=== PATIENT | female | born 1960 | race Caucasian/White ===

== ENCOUNTER 2018-04-23 14:15 | Inpatient (IN) | payer OTHER ==
[2018-04-23 14:15] VITALS: BMI 25.9
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
--- NOTE | 2018-04-23 17:53 | CARD ---
APPROVED REPORT EKG Measurement Heart [id number] <Conclusion> Normal sinus rhythm Normal ECG
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
--- NOTE | 2018-04-23 18:50 | RAD ---
PROCEDURE: CHEST RADIOGRAPH, 1 VIEW HISTORY: wheezing COMPARISON: None available. FINDINGS: LUNGS: Clear. PLEURA: No pneumothorax or pleural fluid seen. CARDIOVASCULAR: Normal. OSSEOUS STRUCTURES: Degenerative changes. Right subdeltoid bursa region loose body, severe calcific tendinitis among other considerations. VISUALIZED UPPER ABDOMEN: Normal. OTHER FINDINGS: Nonspecific calcification in the right axilla. IMPRESSION: No active pulmonary disease. Nonspecific calcification in the right axilla.
[2018-04-23] MEDS ORDERED: Morphine 2 mg/ml ISec IM STA (19:02)
[2018-04-23] MEDS ORDERED: Morphine 4 mg/ml ISec IVP PRN (23:12)
[2018-04-23] MEDS ORDERED: Sodium Chloride 0.9% 1,000 ML IV SCH (23:15)
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
[2018-04-24 01:34] LABS: BASO # 0.01 K/mm3 (0.0-2.0); BASO % 0.2 % (0.0-3.0); EOS % 0.5 % (1.5-5.0); GRAN # 4.1 (1.4-6.5); GRAN % 67.5 % (50.0-68.0); HEMOGLOBIN 12.3 g/dL (12.0-16.0); LYMPH # 1.6 (1.2-3.4); LYMPH % 25.7 % (22.0-35.0); MEAN CELL VOLUME 79.7 fl (80.0-105.0); MEAN CORPUSCULAR HEMOGLOBIN 26.3 pg (25.0-35.0); MEAN PLATELET VOLUME 11.5 fl (7.0-11.0); MONO # 0.4 (0.1-0.6); MONO % 6.1 % (1.0-6.0); RBC 4.68 10^6/uL (3.5-6.1); RED CELL DISTRIBUTION WIDTH 14.2 % (11.5-14.5); WHITE BLOOD COUNT 6.1 10^3/ul (4.5-11.0)
[2018-04-24 01:43] LABS: BLOOD UREA NITROGEN 8 mg/dL (7-21); CALCIUM 9.1 mg/dL (8.4-10.5); GFR AFRICAN-AMERICAN > 60; GFR NON-AFRICAN AMERICAN > 60
[2018-04-24 01:46] LABS: INR 1.15 (0.93-1.08); PARTIAL THROMBOPLASTIN TIME 31.3 Seconds (25.1-36.5); PROTHROMBIN TIME 13.1 SECONDS (9.4-12.5)
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
[2018-04-24] MEDS ORDERED: HYDROCHLOROTHIAZIDE PO SCH (10:00)
[2018-04-24] MEDS ORDERED: [UNRECOGNIZED DRUG - OTHER] PO SCH (10:00)
[2018-04-24] MEDS ORDERED: LOSARTAN POTASSIUM PO SCH (10:00)
[2018-04-24] MEDS ORDERED: GLYBURIDE PO SCH (10:00)
[2018-04-24] MEDS ORDERED: METFORMIN HCL PO SCH (10:00)
[2018-04-24] MEDS: Oxycodone/Acetaminophen 5/325 mg Tab PO PRN ×2 (10:16→18:21)
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
--- NOTE | 2018-04-24 14:46 | RAD ---
PROCEDURE: Bilateral Knee Radiographs. HISTORY: knee pain COMPARISON: None. FINDINGS: BONES: Right Knee: Normal. No fracture. Left Knee: Normal. No fracture. JOINTS: Right Knee: Normal. No osteoarthritis. Left knee: Normal. No osteoarthritis. SOFT TISSUES: Right Knee: Normal. Left Knee: Normal. JOINT EFFUSION: Right Knee: None. Left Knee: None. OTHER FINDINGS: None. IMPRESSION: Normal radiographs of the knees.
--- NOTE | 2018-04-24 16:17 | MRI ---
PROCEDURE: MRI Left Knee HISTORY: Pain. COMPARISON: None available. TECHNIQUE: Multiecho multiplanar sequences were performed through the left knee. FINDINGS: ANTERIOR CRUCIATE LIGAMENT:: Intact. POSTERIOR CRUCIATE LIGAMENT:: Intact. MEDIAL MENISCUS:: Intact. LATERAL MENISCUS:: Intact. MEDIAL COLLATERAL LIGAMENT:: There is edema and swelling of the MCL consistent with a partial tear or severe sprain. LATERAL COLLATERAL LIGAMENT COMPLEX:: Intact. QUADRICEPS TENDON:: Intact. PATELLAR TENDON:: Intact. CARTILAGE:: Intact. JOINT FLUID:: Intact. OSSEOUS STRUCTURES:: Nondisplaced fractures and marrow edema can be seen in the lateral femoral condyle as well as the proximal tibia and fibula. OTHER FINDINGS: None. IMPRESSION: Nondisplaced fractures and marrow edema can be seen in the lateral femoral condyle as well as the proximal tibia and fibula. There is edema and swelling of the MCL consistent with a partial tear or severe sprain.
[2018-04-25] MEDS: Ergocalciferol 50,000 Intl Units Cap PO SCH (09:05)
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
[2018-04-25] MEDS ORDERED: Bupivacaine 0.5% Inj(30mL) IJ ONE (10:34)
[2018-04-25] MEDS ORDERED: MethylPREDNISolone Depo 80 mg/ml (5 ml) Inj INJ ONE (10:34)
[2018-04-25] MEDS ORDERED: Magnesium Hydroxide Susp 30 ml UD PO PRN (14:01)
[2018-04-25] MEDS: Oxycodone/Acetaminophen 5/325 mg Tab PO PRN (17:41)
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
[2018-04-26] MEDS: Ergocalciferol 50,000 Intl Units Cap PO SCH ×2 (09:03→09:09)
--- NOTE | 2018-04-26 10:58 | RAD ---
PROCEDURE: Left Knee Radiographs. HISTORY: Pain. COMPARISON: None. FINDINGS: BONES: No evidence of acute displaced fracture nor dislocation. JOINTS: Minimal medial joint space narrowing. Small marginal medial osteophyte formation present. . Small anterior patella enthesophyte formation present. JOINT EFFUSION: No significant joint effusion OTHER FINDINGS: None. IMPRESSION: No acute fractures. Minimal DJD
[2018-04-26] MEDS: Oxycodone/Acetaminophen 5/325 mg Tab PO PRN (22:16)
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
[2018-04-27] MEDS: Ergocalciferol 50,000 Intl Units Cap PO SCH (09:06)
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
[2018-04-28] MEDS: Ergocalciferol 50,000 Intl Units Cap PO SCH (08:44)
[2018-04-29] MEDS: Ergocalciferol 50,000 Intl Units Cap PO SCH (08:21)
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
[2018-04-30] MEDS: Ergocalciferol 50,000 Intl Units Cap PO SCH (09:27)
[2018-04-30] MEDS ORDERED: Lidocaine 5% Patch TD PRN (09:47)
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
[2018-05-01] MEDS: Ergocalciferol 50,000 Intl Units Cap PO SCH (06:36)
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
[2018-05-02 07:32] VITALS: BP 105/58; PULSE 69; RESP 20; TEMP 98.2; O2SAT 100
[2018-05-02] MEDS: Ergocalciferol 50,000 Intl Units Cap PO SCH (09:20)
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
== END 2018-05-02 11:59 | disposition home health service (06) | DRG 965 ==
LOC: ED 14:15 → ERH 21:34 → 3RNO 04-24 00:38
PROVIDERS: ADMIT Specialist; ATTEND Specialist
DX: S32.591A Other specified fracture of right pubis, initial encounter for closed fracture (principal); S72.424A Nondisplaced fracture of lateral condyle of right femur, initial encounter for closed fracture; S32.601A Unspecified fracture of right ischium, initial encounter for closed fracture; S83.412A Sprain of medial collateral ligament of left knee, initial encounter; E11.9 Type 2 diabetes mellitus without complications; F41.9 Anxiety disorder, unspecified; I10 Essential (primary) hypertension; K59.00 Constipation, unspecified; V03.10XA Pedestrian on foot injured in collision with car, pick-up truck or van in traffic accident, initial encounter; Y92.410 Unspecified street and highway as the place of occurrence of the external cause; Z79.84 Long term (current) use of oral hypoglycemic drugs